=== PATIENT | male | born 1960 | race Caucasian/White ===

== ENCOUNTER 2022-06-18 23:45 | Inpatient (IN) | payer OTHER ==
[~2022-06-18] VITALS: Ht 185.4 cm; Wt 88.5 kg
[~2022-06-18 23:45] MED LIST: Glyburide-Metf1 EAC2 PO; LISI20 PO; METF500C PO
[2022-06-19 00:51] LABS: Source, Urine Clean Catch
[2022-06-19 00:57] LABS: Bilirubin, Urine Neg (Neg); Blood, Urine 2+ (Neg); Glucose Qualitative, Urine 1+ (Neg); Ketones, Urine Neg (Neg); Leukocyte Esterase, Urine 1+ (Neg); Nitrite, Urine Neg (Neg); Protein, Urine 3+ (Neg); Specific Gravity, Urine 1.015 (1.003-1.022); Urobilinogen, Urine NORM (Normal)
[2022-06-19 01:11] LABS: Appearance, Urine Clear (Clear); Color, Urine Yellow (P-Yellow)
[2022-06-19 01:12] LABS: Bacteria Not Seen /hpf; Red Blood Cells, Urine 0-2 /hpf (0-2); Squamous Epithelial Cells Rare /hpf (Few); White Blood Cells, Urine 0-2 /hpf (0-5)
[2022-06-19 01:18] LABS: BASOPHILS ABSOLUTE AUTO 0.06 K/mm3 (0.00-0.23); BASOPHILS PERCENT AUTO 1 % (0-2); EOSINOPHILS ABSOLUTE AUTO 0.11 K/mm3 (0.00-0.68); EOSINOPHILS PERCENT AUTO 2 % (0-6); Hematocrit 42.9 % (37.0-53.0); Hemoglobin 14.3 g/dL (13.5-17.5); IMMATURE GRAN ABSOLUTE AUTO 0.01 K/mm3 (0.00-0.10); IMMATURE GRAN PERCENT AUTO 0 % (0-1); LYMPHOCYTES PERCENT AUTO 16 % (21-46); MONOCYTES ABSOLUTE AUTO 0.62 K/mm3 (0.16-1.47); MONOCYTES PERCENT AUTO 10 % (4-13); Mean Corpuscular HGB 28.9 pg (26.0-34.0); Mean Corpuscular HGB Conc 33.3 g/dL (31.5-36.5); Mean Corpuscular Volume 87 fL (80-100); Mean Platelet Volume 9.9 fL (9.1-12.4); NEUTROPHILS ABSOLUTE AUTO 4.66 K/mm3 (1.96-9.15); NEUTROPHILS PERCENT AUTO 72 % (41-73); Platelet Count 181 K/mm3 (150-400); RDW Coefficient Variation 13.2 % (11.7-14.2); RDW Standard Deviation 41.6 fL (35.1-46.3); Red Blood Cell Count 4.95 M/mm3 (4.30-5.90); White Blood Cell Count 6.46 K/mm3 (4.00-11.30)
[2022-06-19 01:36] LABS: Albumin, Blood 4.1 g/dL (3.4-5.0); Bilirubin, Total 0.6 mg/dL (0.1-1.0); Bun/Creatinine Ratio 18.3 (12.0-20.0); Calcium, Blood 9.2 mg/dL (8.5-10.1); Creatinine, Blood 1.26 mg/dL (0.60-1.20); Potassium, Blood 4.3 mmol/L (3.5-5.5); Total Protein, Blood 8.1 g/dL (6.4-8.2)
[2022-06-19] MEDS ORDERED: AMLODIPINE BESYL5 MG PO (04:05)
[2022-06-19] MEDS ORDERED: LOSA50 (04:06)
[2022-06-19] MEDS ORDERED: PANTOPRAZOLE SO40 M2 PO (04:07)
[2022-06-19] MEDS ORDERED: ACTOS30 MG PO (04:08)
[2022-06-19] MEDS ORDERED: DECADRON4 M1 PO ×2 (16:02→16:34)
--- NOTE | 2022-06-19 20:01 | NUR ---
1545 PT TO MRI IN WHEELCHAIR. MEDICATED WITH ATIVAN 2MG IV X2 PRIOR TO IMAGE. STILL FAILED TO OBTAIN MRI PT UNABLE TO SIT STILL. BROUGHT BACK TO ROOM, SLEEPY, BUT DIRECTABLE, SBA WITH MILD UNSTEADY GAIT. CALLED DR HASKINS, WRITING DC ORDERS. PT TO HAVE MRI OUTPATIEND PLAN FOR CONSCIOUS SEDATION. PT BACAME INCREASINGLY AGITATED. CALLED SECURITY AT AROUND 1700. PT INSISTS ON STANDING THOUGH VERY UNSTEADY. INSISTS ON GETTING DRESSED AND GOING OUTSIDE FOR CIGARETTE. STATES HIS BEHAVIOR IS THE SAME WHEN SHE BROUGHT HIM IN TO THE ED AND SHE CAN'T HANDLE HIM AT HOME. CALLED DR HASKINS, AGREES TO HOLD OFF ON THE DISCHARGE. HOLDING OFF ON DIANNE BELT FOR PT SAFTEY PT AGREES TO AID PT IN HIS ROOM FOR THE TIME. GOT NICOTINE PATCH AND GUM FOR PT TO GET SOME LEXIE. FAMILY INSISTS ON SPEAKING WITH DR HASKINS FACE/FACE. SHE CAME BACK AROUND 1815. BECAME THREATENING IN POSTURE IN CLOSE PROXIMITY TO DR HASKINS INSISTING SHE SEND PT [place] [facility] [place] SCAN. STATED, "DO YOU RUN A DOG KENEL AROUND HERE?" DR HASKINS TOOK THE TIME TO DE-ESCELATE THE [employer]ANT[employer] FAMILY MEMBER AND TALK ABOUT SOLUTIONS AND A PLAN. AGREE TO SHAKA PT THROUGH THE NIGHT AND MAKE DECISIONS TOMORROW.
[2022-06-19 23:05] LABS: Influenza A, PCR NEGATIVE (NEGATIVE); Influenza B, PCR NEGATIVE (NEGATIVE); Resp Syncytial Virus, PCR NEGATIVE (NEGATIVE); SARS-Cov-2 (COVID-19) PCR, MMC NEGATIVE (NEGATIVE)
== END 2022-06-19 22:52 | disposition short-term general hospital (02) | DRG 70 ==
LOC: ER 23:45 → MEDS 23:46
PROVIDERS: Hospitalist; Student in an Organized Health Care Education/Training Program; ADMIT Internal Medicine
DX: G93.9 Disorder of brain, unspecified (principal); G93.6 Cerebral edema; G93.40 Encephalopathy, unspecified; F40.240 Claustrophobia; Z20.822 Contact with and (suspected) exposure to COVID-19; K22.70 Barrett's esophagus without dysplasia; F17.210 Nicotine dependence, cigarettes, uncomplicated; E11.22 Type 2 diabetes mellitus with diabetic chronic kidney disease; I12.9 Hypertensive chronic kidney disease with stage 1 through stage 4 chronic kidney disease, or unspecified chronic kidney disease; N18.1 Chronic kidney disease, stage 1; Z79.899 Other long term (current) drug therapy; Z98.890 Other specified postprocedural states; Z89.022 Acquired absence of left finger(s); Z79.84 Long term (current) use of oral hypoglycemic drugs
CPT/HCPCS: 0241U; 36415; 70450; 80053; 81001; 82947; 85025; 96361; 96374; 99285-25; A9270; G0378; J1100; J2060; J7030

== ENCOUNTER 2022-09-26 14:35 | Inpatient (IN) | payer OTHER ==
[~2022-09-26] VITALS: Ht 185.4 cm; Wt 76.1 kg
[~2022-09-26 14:35] MED LIST changes: +ACTOS30 MG PO; +AMLODIPINE BESYL5 MG PO; +DECADRON4 M1 PO; +LOSA50 PO; +PANTOPRAZOLE SO40 M2 PO
[2022-09-26 15:12] LABS: BASOPHILS ABSOLUTE AUTO 0.05 K/mm3 (0.00-0.23); BASOPHILS PERCENT AUTO 1 % (0-2); EOSINOPHILS PERCENT AUTO 2 % (0-6); Hematocrit 33.3 % (37.0-53.0); Hemoglobin 10.5 g/dL (13.5-17.5); IMMATURE GRAN ABSOLUTE AUTO 0.03 K/mm3 (0.00-0.10); IMMATURE GRAN PERCENT AUTO 1 % (0-1); LYMPHOCYTES ABSOLUTE AUTO 0.71 K/mm3 (0.84-5.20); LYMPHOCYTES PERCENT AUTO 11 % (21-46); MONOCYTES ABSOLUTE AUTO 0.36 K/mm3 (0.16-1.47); MONOCYTES PERCENT AUTO 6 % (4-13); Mean Corpuscular HGB 25.9 pg (26.0-34.0); Mean Corpuscular HGB Conc 31.5 g/dL (31.5-36.5); Mean Corpuscular Volume 82 fL (80-100); Mean Platelet Volume 10.2 fL (9.1-12.4); NEUTROPHILS ABSOLUTE AUTO 5.34 K/mm3 (1.96-9.15); NEUTROPHILS PERCENT AUTO 81 % (41-73); Platelet Count 207 K/mm3 (150-400); RDW Coefficient Variation 13.8 % (11.7-14.2); Red Blood Cell Count 4.06 M/mm3 (4.30-5.90); White Blood Cell Count 6.59 K/mm3 (4.00-11.30)
[2022-09-26 15:33] LABS: Albumin, Blood 3.2 g/dL (3.4-5.0); Albumin/Globulin Ratio 0.8 (0.8-1.8); Bilirubin, Total 0.3 mg/dL (0.1-1.0); Bun/Creatinine Ratio 14.8 (12.0-20.0); Calcium, Blood 8.9 mg/dL (8.5-10.1); Creatinine, Blood 1.08 mg/dL (0.60-1.20); Globulin, Blood 3.8 g/dL (2.2-4.0); Potassium, Blood 3.7 mmol/L (3.5-5.5)
[2022-09-26 16:46] LABS: Source, Urine Clean Catch
[2022-09-26] MEDS ORDERED: LEVE500 PO (17:00)
[2022-09-26 17:31] LABS: Appearance, Urine Clear (Clear); Bilirubin, Urine Neg (Neg); Blood, Urine 2+ (Neg); Color, Urine Yellow (P-Yellow); Glucose Qualitative, Urine Neg (Neg); Ketones, Urine 1+ (Neg); Leukocyte Esterase, Urine Neg (Neg); Nitrite, Urine Neg (Neg); Protein, Urine 2+ (Neg); Specific Gravity, Urine 1.015 (1.003-1.022); Urobilinogen, Urine NORM (Normal)
[2022-09-26 18:11] LABS: Bacteria Few /hpf; Granular Casts 0-2 /lpf (0); Hyaline Casts 0-2 /lpf (0-2); Squamous Epithelial Cells Rare /hpf (Few)
[2022-09-26] MEDS ORDERED: ATOR40TA PO (21:16)
--- NOTE | 2022-09-27 06:41 | NUR ---
A/OX2; SELF AND PLACE, IRRITABLE, GENERALLY COOPERATIVE WITH CARE. PATIENT ATTEMPTED TO PULL JONES CATH AND IMPULSIVE ATTEMPTS TO EXIT BED ALONE. GOOD BED MOBILITY, NOT TESTED OOB YET (FAILED ROAD TEST IN ED). UNABLE TO COMPLETE MRI FORM WITH PATIENT. WILL DEFER TO DAY SHIFT TO CONTACT . SLEEP PROMOTED. CALL LIGHT IN REACH; ENCOURAGED TO MAKE NEEDS KNOWN. BED ALARM SET. FREQUENT ROUNDING/ NEEDS ANTICIPATED
[2022-09-27 07:29] LABS: BASOPHILS ABSOLUTE AUTO 0.06 K/mm3 (0.00-0.23); BASOPHILS PERCENT AUTO 1 % (0-2); EOSINOPHILS ABSOLUTE AUTO 0.11 K/mm3 (0.00-0.68); EOSINOPHILS PERCENT AUTO 2 % (0-6); Hematocrit 32.5 % (37.0-53.0); Hemoglobin 10.6 g/dL (13.5-17.5); IMMATURE GRAN ABSOLUTE AUTO 0.01 K/mm3 (0.00-0.10); IMMATURE GRAN PERCENT AUTO 0 % (0-1); LYMPHOCYTES ABSOLUTE AUTO 0.84 K/mm3 (0.84-5.20); LYMPHOCYTES PERCENT AUTO 14 % (21-46); MONOCYTES ABSOLUTE AUTO 0.61 K/mm3 (0.16-1.47); MONOCYTES PERCENT AUTO 10 % (4-13); Mean Corpuscular HGB 26.3 pg (26.0-34.0); Mean Corpuscular HGB Conc 32.6 g/dL (31.5-36.5); Mean Corpuscular Volume 81 fL (80-100); Mean Platelet Volume 10.3 fL (9.1-12.4); NEUTROPHILS ABSOLUTE AUTO 4.32 K/mm3 (1.96-9.15); NEUTROPHILS PERCENT AUTO 73 % (41-73); Platelet Count 210 K/mm3 (150-400); RDW Coefficient Variation 13.9 % (11.7-14.2); RDW Standard Deviation 40.5 fL (35.1-46.3); Red Blood Cell Count 4.03 M/mm3 (4.30-5.90); White Blood Cell Count 5.95 K/mm3 (4.00-11.30)
[2022-09-27 07:57] LABS: Anion Gap 7 mmol/L (6-16); Blood Urea Nitrogen 12 mg/dL (8-24); Bun/Creatinine Ratio 11.1 (12.0-20.0); CO2, Blood 28 mmol/L (21-32); Calcium, Blood 9.1 mg/dL (8.5-10.1); Chloride, Blood 106 mmol/L (98-108); Cholesterol 188 mg/dL (50-200); Creatinine, Blood 1.08 mg/dL (0.60-1.20); Glomerular Filtration Rate 78 (60-); Glucose, Blood 127 mg/dL (70-99); Potassium, Blood 3.6 mmol/L (3.5-5.5); Sodium, Blood 141 mmol/L (136-145); Triglycerides 106 mg/dL (30-160)
--- NOTE | 2022-09-27 16:52 | NUR ---
SHIFT SUMMARY PT HAD ECHO AND MRI COMPLETED TODAY. PT WORKED WITH ST/PT/OT. CLEARED BY ST. 2P MAX ASSIST NEEDED FOR TRANSFER AFTER WORKING WITH THERAPY. LEGS ARE VERY WEAK, ESPECIALLY THE L SIDE. IV FLUIDS DCED TODAY. PT TOLERATING PO INTAKE. POOR APPETITE HOWEVER. FLOEY CATH PATENT & DRAINING DUE TO ACUTE RETENTION. NO OTHER ACUTE CHANGES IN ASSESSMENT AT THIS TIME. VS REVIEWED. CALL LIGHT IN REACH.
--- NOTE | 2022-09-28 07:29 | NUR ---
A/OX3-4; ONLY DISORIENTED TO CURRENT YEAR, IRRITABLE AT TIMES, FORGETFUL, GENERALLY COOPERATIVE WITH CARE. IMPUSIVE ATTEMPTS TO EXIT BED AT TIMES. JONES PATENT; PLACED FOR RETENTION IN ED. 2X ASSIST PIVOT WITH GAITBELT AND WALKER. SLEEP PROMOTED. CALL LIGHT IN REACH; ENCOURAGED TO MAKE NEEDS KNOWN. BED ALARM SET. FREQUENT ROUNDING/ NEEDS ANTICIPATED
--- NOTE | 2022-09-28 16:34 | NUR ---
SHIFT NOTE PT AWAKE AND ALERT. UP IN CHAIR AT BEDSIDE MOST OF THE DAY. WORKED WITH PT/OT TODAY. HE EXPRESSED FEELING HOPEFUL FOR SNF/REHAB. VSS. STARTED ORETIC THIS AFTERNOON. HE WANTS HIS JONES OUT TONIGHT WHEN HE GOES TO BED. DENIED PAIN OR DISCOMFORT. CONTINUE POC.
--- NOTE | 2022-09-29 04:32 | NUR ---
ICT SALES REPRESENTATIVE SUMMARY PT IS AXO X3-4 BUT HAS SCATTERED THOUGHTS AND IS INTERMITTANTLY CONFUSED. PTABLE TO TRASNFER SELF FROM CHAIR TO BED WITH MINIMAL ASSITANCE FROM THIS RN. BP STILL ELEVATED BUT TRENDING DOWN. O2 SATS >92% ON RM AIR. JONES CATHETER IN PLACE DRAINING TO GRAVITY. CATHETER CLAMPED ON AND OFF THROUGHOUT THE SHIFT FOR BLADDER TRAINING FOR ANTIVCIPATION OF REMOVAL, PT EXPRESSING DESIRE TO HAVE CATHETER REMOVED. PT ABLE TO SLEEP FOR MAJORITY OF THE NIGHT. WILL REPORT TO ONCOMING RN.
--- NOTE | 2022-09-29 16:47 | NUR ---
EVENING NOTE PT UP IN CHAIR ALL DAY. TRANSFERS WITH GAIT BELT AND FWW. NO ATTEMPOTS TO GET UP WITH OUTHELP. GOOD APPETITE. VISITED THIS MORNING. PT HAS HAD NO COMPLAINTS FOR STAFF. NAPPING FREQUENTLY. CONTINUE POC.
--- NOTE | 2022-09-30 04:21 | NUR ---
SHIFT SUMMARY PATIENT HAD NO ACUTE CHANGES OBSERVED. AXOX 4 AND ONE ASSIST W/FWW AND GB TO BSC. JONES PATENT AND DRAINING TO GRAVITY FOR RETENTION. PIV REMAINS INTACT. CBG 266. DENIES PAIN, SOB, AND N/V. VSS/AFEBRILE. CALL LIGHT IN REACH. BED IN LOWEST POSITION. WILL CONTINUE TO MONITOR UNTIL DAY SHIFT NURSE ASSUMES CARE.
--- NOTE | 2022-09-30 19:40 | NUR ---
SHIFT SUMMARY PTN UP TO CHAIR MOST OF DAY, WATCHING TV OR READING A BOOK. IN FOR A BIT, WELL OTHER FAMILY. PTN ANXIOUS TO GET BED AT SNF FOR REHAB. HX PRIOR STROKE WITH L-SIDED WEAKNESS, YET INDEPENDENT IN ROOM WITH NO VISIBLE DEFICIT. HERE FOR SEIZURE, STARTED ON MEDICATION, NO SEIZURE ACTIVITY REPORTED SINCE ADMISSION. INSULIN SHORT-ACTING AND METFORMIN ADDED TO MEDICATION REGIMEN. PTN WITH INTERMITTENT CONFUSION. HE DID NOT REMEMBER ANY SKIN ISSUES REPORTED BY THERAPY ASSISTANT AND SAID HE DID NOT WANT INSULIN AND THEN DID NOT REMEMBER SAYING THAT. REPORTED BLOOD SUGARS BETTER CONTROLLED AT HOME. CONTINUE TO MONITOR.
--- NOTE | 2022-10-01 05:01 | NUR ---
SHIFT MOSTLY UNREMARKABLE. PT INDEPENDENT WITHIN THE ROOM. PT STAYED AWAKE THROUGHOUT ENTIRETY OF SHIFT. PT HAS HABIT OF WALKING WITHIN THE ROOM WITHOUT PAYING ATTENTION TO JONES CATHETER AND STRETCHING THE LINE FARTHER THAN INTENDED. AROUND 0500 PATIENT COMPLAINED OF BURNING SENSATION ASSOCIATED WITH JONES. NO APPARENT SIGNS OF DAMAGE. MAY BE ABLE TO DC ON DAY SHIFT. CALL LIGHT LEFT WITHIN REACH.
--- NOTE | 2022-10-01 17:24 | NUR ---
SHIFT SUMMARY: NO NEW CHANGES THIS SHIFT. PATIENT A&OX3, FORGETFUL AND MILD CONFUSION AT TIMES. EASILY REDIRECTABLE, PLEASANT AND COOPERATIVE WITH CARE. PATIENT PARTICIPATE WITH PT MOBILITY THIS AM. AMBULATES IN ROOM WITH SBA, FWW AND GAITBELT. PATIENT BS THIS SHIFT RANGES FROM 170'S-250'S. RECEIVED INSULIN PER LOW SLIDING SCALE COVERAGE ALONG WITH SCHEDULED METFORMIN BID. PATIENT RECEIVED BLADDER TRAINING T/O THE DAY, PRIOR TO DC'D THE JONES. JONES WAS DC'D AT 1635. IV TO L WRIST SALINE LOCKED. VITAL SIGNS REVIEWED. CALL LIGHT IN REACH.
--- NOTE | 2022-10-02 05:11 | NUR ---
SHIFT MOSTLY UNREMARKABLE. PATIENT IS INDEPENDENT IN ROOM AND CALLS APPROPRIATELY. HS CBG CHECK WAS ABOUT 300 MG/DL. PATIENT ASYMPTOMATIC WITH NO COMPLAINTS. WITHHELD NIGHTTIME SNACKS/FOODS WITH PLANS TO RECHECK IN MORNING. PATIENT PRODUCING URINE AND VOIDING WITHOUT DIFFICULTY AFTER DC OF JONES YESTERDAY ON DAY SHIFT. CALL LIGHT LEFT WITHIN REACH.
--- NOTE | 2022-10-02 18:18 | NUR ---
SHIFT SUMMARY- PT ALERT AND ORIENTED X 3-4 HE CAN BE A LITTLE FORGETFUL. PT HAS BEEN INDEPENDENT TO THE BATHROOM AND REPORTS NO DIFFICULTY VOIDING SINCE CATHETER REMOVAL. 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 PT STATED THE STROKE HAS MADE HIM FORGET HOW HE ADAPTED TO LIFE WITH NO FINGERS ON THE LEFT HAND. HE CAN GET A LITTLE FRUSTRATED TRYING TO PERFORM SOME TASKS, BUT ANSWERS QUESTIONS APPROPRIATELY. WILL CTM AND PASS ON TO NIGHT RN IN BEDSIDE REPORT.
[2022-10-02 23:55] LABS: Source, Urine Clean Catch
[2022-10-02 23:58] LABS: Bilirubin, Urine Neg (Neg); Blood, Urine 3+ (Neg); Glucose Qualitative, Urine Neg (Neg); Ketones, Urine Neg (Neg); Leukocyte Esterase, Urine 3+ (Neg); Nitrite, Urine Pos (Neg); Protein, Urine 3+ (Neg); Specific Gravity, Urine 1.015 (1.003-1.022); Urobilinogen, Urine NORM (Normal)
[2022-10-03 00:50] LABS: Appearance, Urine Cloudy (Clear); Color, Urine Yellow (P-Yellow)
[2022-10-03 01:47] LABS: White Blood Cells, Urine 50-100 /hpf (0-5)
[2022-10-03 01:48] LABS: Bacteria Many /hpf; Squamous Epithelial Cells Rare /hpf (Few)
[2022-10-03 01:50] LABS: Granular Casts 0-2 /lpf (0)
--- NOTE | 2022-10-03 05:40 | NUR ---
Rn summary: Patient was restless and up frequently to the BR at the beginning of shift. Pt seemed to be having difficulty manuvering the walker around the toliet so he could sit on it. He would put it against the side of the toliet and then he would be blocked in. Pt was unsteady enough we put the bed alarm on and he was a 1 assist to the bathroom. He finally agreed to use the urinal with assist after being up 7 times. He has rested well since. Order was obtained for a UA, culture is pending. Pt had c/o some burning when he urinated. Pt had voiced some frustration that he had difficulty doing things that used to be routine, like pulling his pants up and down. Pt was irritable at the beginning of shift. resting at this time with eyes closed. Call light in reach, bed alarm on.
--- NOTE | 2022-10-03 18:21 | NUR ---
EVENING NOTE PT RESTING. USING CALL LIGHT APPROPRAITELY. VOIDING PER URINAL. HE SEEMS LESS STEADY WHEN UP. HE IS RUNNING HTE LEFT SIDE OF THE WALKER INTO THE DOOR FRAME. HE DSEEMS TO BE HAVING MORE DIFFICULTY PROBLEM SOLVING. LAST WEEK HE STOOD STRAIGHT UP. TODAY HE'S MORE STOOPED. POOR APPETITE TODAY. VOIDING GEOVANI URINE. NO COMPLAINTS OF PEEING PAIN. HE EXPRESSED FRUSTRATION WITH BEINGHERE STILL. CONTINUE POC.
--- NOTE | 2022-10-04 04:16 | NUR ---
SHIFT SUMMARY PATIENT IS ALERT AND ORIENTED. PATIENT HAS BEEN PLEASENT AND COOPERATIVE WITH CARE. PATIENT HAS HAD NO ACUTE EVENTS THIS SHIFT. PATIENT HAS NEEDED HELP WITH URINAL AND GETTING TO BATHROOM USING FWW. PATIENT HAS BEEN PRODUCING FREQUENT SMALL AMOUNTS OF URINE. PATIENT HAS NOT COMPLAINED OF PAIN, NAUSEA, SOB OR VOMITTING. BED IN LOWEST AND LOCKED POSITION. CALL LIGHT IN PLACE. PATIENT CURRENTLY RESTING IN BED COMFORTABLY.
--- NOTE | 2022-10-04 18:30 | NUR ---
EVENING NOTE PT AWAKE AND ALERT. PT/ MET WITH A [employer] MOLD PRINTER TO SIGN UP FOR MEDICAIDE TODAY. FAMILY AT BEDSIDE THIS EVENING. DAUGHTER IN LAW CALLED [facility] TO TRY AND GREASE THE WHEELS AND GET PT A BED. RECOMMENDED THAT SHE COME IN WITH [facility] AND MEET WITH OYSTER PREPARER TOMORROW. NO CHANGE IN MOBILITY, LEFT FIELD NEGLECT . HE IS USING A 4 WHEELED WALKER TODAY THAT SEEMS TO WORK BETTER FOR HIM. UP TO THE BATHROOM WITH SBA AND VISUAL CUEING. VSS. CONTINUE POC.
--- NOTE | 2022-10-05 06:48 | NUR ---
Shift Summary Pt AOx4, vss, stable and cooperative with care. Slept well t/o most of the night. Calls appropriatly when needing to use urinal or bathroom.
--- NOTE | 2022-10-06 05:35 | NUR ---
SHIFT SUMMARY PATIENT ALERT AND ORIENTED X3. HAD NO COMPLAINTS OF PAIN OR SHORTNESS OF BREATH. NO ACUTE ISSUES NOTED OVERNIGHT. CALL LIGHT WITHIN REACH. REPORT GIVEN TO ONCOMING RN.
--- NOTE | 2022-10-06 12:23 | NUR ---
NO ACUTE CHANGES SINCE ASSUMPTION OF CARE AT 0700. PATIENT UP IN ROOM SBA, WORKED WITH PT & OT AND DID VERY WELL. PATIENT HOPEFUL TO BE DC'D HOME RATHER THAN SNF. EEATING, DRINKING, & VOIDING W/O DIFFICULTY. VSS ON RA. CALLS APPROPRIATELY.
--- NOTE | 2022-10-06 18:27 | NUR ---
Assumed care of patient at 1300, handoff report given by RN. Patient independent in room, no concerns at this time. Plan is to discharge home tomorrow w/ homehealth.
--- NOTE | 2022-10-07 05:46 | NUR ---
SHIFT SUMMARY PATIENT ALERT AND ORIENTED. HAD NO COMPLAINTS OF PAIN OR SHORTNESS OF BREATH. PATIENT HAD MINIMAL NEEDS AND SLEPT WELL OVERNIGHT. NO ACUTE ISSUES NOTED. CALL LIGHT WITHIN REACH. REPORT GIVEN TO ONCOMING RN.
[2022-10-07] MEDS ORDERED: KEPPRA100 MG/1 M PO (11:16)
[2022-10-07] MEDS ORDERED: ASPI81CH PO (11:19)
[2022-10-07] MEDS ORDERED: NORVASC5 MG PO (11:19)
[2022-10-07] MEDS ORDERED: DOCU100 PO (11:20)
[2022-10-07] MEDS ORDERED: CARV6.25 PO (11:20)
[2022-10-07] MEDS ORDERED: CLOP75 PO (11:20)
[2022-10-07] MEDS ORDERED: HYDCHL25 PO (11:21)
[2022-10-07] MEDS ORDERED: TAMS.4ER PO (11:21)
--- NOTE | 2022-10-07 12:33 | NUR ---
PT IS A&O, PLEASANT AND CO-OP WITH CARE. SITTING UP IN CHAIR AT BS AT START OF SHIFT. NO C/O. PT HOPING TO GO HOME TODAY; DR BUTTS LATER IN TO SEE PT AND DISCUSS PLAN OF CARE. PT OK TO D/C TO HOME WITH H/H. D/C ORDERS PLACED. MEDICATIONS FAXED TO [facility], PER PT REQUEST. D/C INSTRUCTIONS REVIEWED WITH PT. NOTIFIED OF PT'S D/C, PER PT REQUEST. DENIED FURTHER NEEDS AT THIS TIME. PT AMBULATING IN HALLS SEVERAL TIMES TODAY WITH SBA FROM [facility]OPE WALKER. INDEPENDENT IN AND TO [facility].
--- NOTE | 2022-10-07 13:26 | NUR ---
PT'S HERE TO SPECIAL EVENTS DRIVER PT. PT REQUESTED AND ABLE TO WALK HIMSELF OUT TO CAR USING FWW PROVIDED. GATHERED AND LEFT WITH PT BELONGS AT PT'S SIDE.
== END 2022-10-07 13:08 | disposition home health service (06) | DRG 65 ==
LOC: ER 14:35 → MEDS 14:36
PROVIDERS: Emergency Medicine; Nurse Practitioner Acute Care; ADMIT Student in an Organized Health Care Education/Training Program
DX: I63.9 Cerebral infarction, unspecified (principal); N39.0 Urinary tract infection, site not specified; R56.9 Unspecified convulsions; Z23 Encounter for immunization; R29.703 NIHSS score 3; F40.240 Claustrophobia; I10 Essential (primary) hypertension; E11.9 Type 2 diabetes mellitus without complications; K22.70 Barrett's esophagus without dysplasia; F17.210 Nicotine dependence, cigarettes, uncomplicated; D64.9 Anemia, unspecified; R33.8 Other retention of urine; B96.20 Unspecified Escherichia coli [E. coli] as the cause of diseases classified elsewhere; Z98.890 Other specified postprocedural states; Z86.73 Personal history of transient ischemic attack (TIA), and cerebral infarction without residual deficits; Z79.84 Long term (current) use of oral hypoglycemic drugs; Z79.899 Other long term (current) drug therapy
CPT/HCPCS: 36415; 51702; 70450; 70551; 80048; 80053; 81001; 82465; 82947; 83735; 84478; 85025; 87077; 87086; 87186; 90686; 92610; 93005; 93010; 93306; 93880; 96361; 96365; 96366; 96367; 96372; 96375; 97110; 97112; 97116; 97129; 97162; 97166; 97530; 97535; 99285-25; A9270; G0008; G0378; G0480; J1650; J1953; J2060; J3475; J7030; J7120

== ENCOUNTER 2022-12-11 17:05 | Inpatient (IN) | payer OTHER ==
[~2022-12-11] VITALS: Ht 185.4 cm; Wt 78.4 kg
[~2022-12-11 17:05] MED LIST changes: +ASPI81CH PO; +ATOR40TA PO; +CARV6.25 PO; +CLOP75 PO; +DOCU100 PO; +HYDCHL25 PO; +KEPPRA100 MG/1 M PO; +LEVE500 PO; +NORVASC5 MG PO; +TAMS.4ER PO
[2022-12-11 17:21] LABS: BASOPHILS ABSOLUTE AUTO 0.04 K/mm3 (0.00-0.23); BASOPHILS PERCENT AUTO 1 % (0-2); EOSINOPHILS ABSOLUTE AUTO 0.17 K/mm3 (0.00-0.68); EOSINOPHILS PERCENT AUTO 3 % (0-6); Hematocrit 36.4 % (37.0-53.0); Hemoglobin 11.8 g/dL (13.5-17.5); IMMATURE GRAN ABSOLUTE AUTO 0.01 K/mm3 (0.00-0.10); IMMATURE GRAN PERCENT AUTO 0 % (0-1); LYMPHOCYTES ABSOLUTE AUTO 1.76 K/mm3 (0.84-5.20); LYMPHOCYTES PERCENT AUTO 28 % (21-46); MONOCYTES ABSOLUTE AUTO 0.53 K/mm3 (0.16-1.47); MONOCYTES PERCENT AUTO 8 % (4-13); Mean Corpuscular HGB 25.7 pg (26.0-34.0); Mean Corpuscular HGB Conc 32.4 g/dL (31.5-36.5); Mean Corpuscular Volume 79 fL (80-100); Mean Platelet Volume 9.5 fL (9.1-12.4); NEUTROPHILS ABSOLUTE AUTO 3.87 K/mm3 (1.96-9.15); NEUTROPHILS PERCENT AUTO 61 % (41-73); Platelet Count 222 K/mm3 (150-400); RDW Coefficient Variation 15.4 % (11.7-14.2); RDW Standard Deviation 43.8 fL (35.1-46.3); White Blood Cell Count 6.38 K/mm3 (4.00-11.30)
[2022-12-11 17:47] LABS: Bilirubin, Total 0.3 mg/dL (0.1-1.0); Bun/Creatinine Ratio 22.1 (12.0-20.0); Calcium, Blood 9.1 mg/dL (8.5-10.1); Creatinine, Blood 1.13 mg/dL (0.60-1.20); Globulin, Blood 4.1 g/dL (2.2-4.0); Potassium, Blood 4.1 mmol/L (3.5-5.5); Total Protein, Blood 8.1 g/dL (6.4-8.2)
--- NOTE | 2022-12-12 00:45 | NUR ---
ADMIT NOTE; PT ARRIVES TO THE FLOOR VIA ED GURNERY. THE PT IS TRANSFERED VIA SLIDER SHEET TO THE HOSPITAL BED. THE PT IS ALERT UPON ADMIT. THE PT HAS TREMORS UPON ADMIT AND IS SPASTIC. THE PT IS UNPLEASANT WITH STAFF AND CURSES WHEN WE ATTEMPT TO PERFORM ANY PT CARE. THE PT APPEARS TO BE NO ACUTE DISTRESS.
--- NOTE | 2022-12-12 01:00 | NUR ---
CALLED DR CLEMENTE IN REGARDS TO PTS BLOOD PRESSURE BEING ELEVATED AT 186/98 AND THE PTS BLOOD SUGAR BEING 71 WHILE BEING NPO STATUS. D-50 ORDER GIVEN AND TO PUT IN BLOOD PRESSURE MEDICATION ORDERS.
[2022-12-12 05:10] LABS: BASOPHILS ABSOLUTE AUTO 0.04 K/mm3 (0.00-0.23); BASOPHILS PERCENT AUTO 1 % (0-2); EOSINOPHILS ABSOLUTE AUTO 0.11 K/mm3 (0.00-0.68); EOSINOPHILS PERCENT AUTO 3 % (0-6); Hematocrit 32.4 % (37.0-53.0); Hemoglobin 10.8 g/dL (13.5-17.5); IMMATURE GRAN ABSOLUTE AUTO 0.02 K/mm3 (0.00-0.10); IMMATURE GRAN PERCENT AUTO 1 % (0-1); LYMPHOCYTES ABSOLUTE AUTO 0.81 K/mm3 (0.84-5.20); LYMPHOCYTES PERCENT AUTO 19 % (21-46); MONOCYTES ABSOLUTE AUTO 0.42 K/mm3 (0.16-1.47); MONOCYTES PERCENT AUTO 10 % (4-13); Mean Corpuscular HGB 25.7 pg (26.0-34.0); Mean Corpuscular HGB Conc 33.3 g/dL (31.5-36.5); Mean Corpuscular Volume 77 fL (80-100); Mean Platelet Volume 9.6 fL (9.1-12.4); NEUTROPHILS ABSOLUTE AUTO 2.87 K/mm3 (1.96-9.15); NEUTROPHILS PERCENT AUTO 67 % (41-73); Platelet Count 176 K/mm3 (150-400); RDW Standard Deviation 41.8 fL (35.1-46.3); White Blood Cell Count 4.27 K/mm3 (4.00-11.30)
[2022-12-12 05:39] LABS: Magnesium, Blood 1.8 mg/dL (1.6-2.4)
[2022-12-12 05:41] LABS: Albumin, Blood 3.7 g/dL (3.4-5.0); Albumin/Globulin Ratio 1.1 (0.8-1.8); Bilirubin, Total 0.3 mg/dL (0.1-1.0); Calcium, Blood 9.1 mg/dL (8.5-10.1); Creatinine, Blood 1.11 mg/dL (0.60-1.20); Globulin, Blood 3.3 g/dL (2.2-4.0); Potassium, Blood 3.1 mmol/L (3.5-5.5)
--- NOTE | 2022-12-12 05:51 | NUR ---
SHIFT SUMMARY; PT IS WITH TREMORS AND SPASTIC T/O THE NIGHT. THE PT IS AXO X3-4 WITH SOME CONFUSION. SEIZURE PRECAUTIONS ARE IN PLACE. NS IS RUNNING AT 100MLS/HR. THE PT DENIES ANY SOB, CHEST PAIN/PRESSURE. THE PTS IS UNPLEASANT WITH STAFF DURING PERSONAL CARE FREQUENTLY, OFTEN CURSES AT STAFF. THE PT IS CURRENTLY RESTING IN BED WITH THE BED IN THE LOWEST POSITION, SEIZURE PADS IN PLACE, THE BED IN THE LOWEST POSITION AND THE CALL LIGHT WITHIN REACH.
--- NOTE | 2022-12-12 06:42 | NUR ---
CALLED ABOUT PTS B/P ORIGINALLY BEING 178/85, SAID I COULD GIVE 0800 COREG AND 0900 LOSARTAN EARLY. RECHECKED VITALS DUE TO PTS HEART RATE ONLY BEING 64, NEW VITALS 156/80 AND HEART RATE 63. DECIDED NOT TO GIVE COREG OR LOSARTAN NOW.
--- NOTE | 2022-12-12 10:46 | NUR ---
NOTES: PATIENT THE ROOM AT THIS TIME, TRANSPORTED VIA GURNEY TO IMAGING.
[2022-12-12 11:11] LABS: Source, Urine Clean Catch
[2022-12-12 11:14] LABS: Appearance, Urine Hazy (Clear); Bilirubin, Urine Neg (Neg); Blood, Urine 2+ (Neg); Color, Urine Yellow (P-Yellow); Glucose Qualitative, Urine Neg (Neg); Ketones, Urine Neg (Neg); Leukocyte Esterase, Urine 3+ (Neg); Nitrite, Urine Neg (Neg); Protein, Urine 2+ (Neg); Urobilinogen, Urine NORM (Normal); pH, Urine 6.5 (5.0-8.0)
[2022-12-12 13:18] LABS: Bacteria Few /hpf; Squamous Epithelial Cells Rare /hpf (Few)
--- NOTE | 2022-12-12 14:46 | NUR ---
NOTES: PATIENT LEFT THE ROOM AT THIS TIME, TRANSPORTED VIA GURNEY TO IMAGING.
--- NOTE | 2022-12-12 18:39 | NUR ---
SHIFT SUMMARY: PATIENT A&OX3. IRRITABLE, AND EASILY GET FRUSTRATED c REPOSITIONING AND ATTENDS CHANGED T/O SHIFT. DENIES CP/PRESSURE, SOB, NV. PATIENT HAS BEEN SLEEPING OFF AND ON T/O SHIFT. PATIENT HAS EPISODE OF JERKY MOVEMENT TO UPPER EXTREMITIES T/O SHIFT. ECHO WAS DONE TODAY, AWAITING FOR RESULT. PATIENT HAD 2 ATTEMPT TO HAD MRI TO HEAD BUT WAS NOT SUCCESSFUL EVEN c OT DOSE OF IV VALIUM ADMINISTER 30 MINS BEFORE THE PROCEDURE. PATIENT WAS NOT TOLERATING LAYING FLAT. REPORTS PAIN TO L SHOULDER. PER DRY CLEANER PRESSER, WILL TRY AGAIN TOMORROW. DR BUTTS WAS NOTIFIED WITH THIS ISSUE. VITAL SIGNS REVIEWED. IV TO L FOREARM INFUSING NS AT 100 MLS/HR. COREG DOSE AT 1700 WAS NOT GIVEN D/T PATIENT HR OF 66 BPM. PER ORDER TO HOLD COREG IF HR LESS 70 BPM. PATIENT IS CONT/INCONTIN T/O SHIFT, USED URINAL c ASSISTANCE AND ATTENDS INPLACE. BED ALARM ON FOR SAFETY. CALL LIGHT IN REACH.
--- NOTE | 2022-12-12 20:17 | NUR ---
PT HAD SEIZURE LIKE ACTIVITY DURING ASSESSMENT: HE WAS A/OX4 W/MILD FORGETFULLNES TO DAY OF MONTH BUT IS ORIENTED OTHERWISE. HE'S SLIGHTLY SLOW TO RESPOND BUT IS ABLE TO SPECIFY NEEDS APPROPRIATELY. L.UPPPER AND LOWER EXT'S WEAK AND LACK COORDINATION RESIDUAL CVA DEFICITS FROM 09/2022. BUT WHEN STAFF WERE REPOSITIONING PT, IT SEEMED TO TRIGGER SEIZURE LIKE ACTIVITY. HE REMAINED CONSCIOUS T/O APPROX 1 MINUTE EPISODE BUT HE BEGAN JERKING AND TREMBLING UNCONTROLLABLY. THIS WAS NOTED TO BE MORE PRONOUNCED TO HIS L.SIDE. WITH SIGNIFICANT TREMOR SEEN TO HAND AND CHEST. HIS HEAD ALSO TURNED TOWARD THE LEFT W/HIS EYES BECOMING FIXED IN A FORWARD GAIZE. HE WAS ABLE TO SPEAK T/O EVENT BUT SPEECH WAS SHAKEY AND DELAYED. HE WAS ENTIRELY COGNIZANT OF EVENT AND IT RESOLVED SPONTANEOUSLY. HE DENIED PAIN, NAUSEA AND ALL OTHER S/S DISTRESS. VSS WERE STABLE FOLLOWING AND HE RETURNED TO BASELINE MENTATION W/O COMPLAINTS. HE ADMITTED THAT THIS HAS BEEN OCCURING FOR APPROX "48 HOURS NOW" BUT HE HAD NO OTHER SEIZURE LIKE ACTIVITY OTHER THAN "ONCE NEARLY A MONTH OR 2 AGO". PLAN TO MONITOR CLOSELY FOR CHANGES OR INCREASE IN DURATION/FREQUENCY OF EVENTS. WILL NOTIFY MD RODRIGUEZ AND PROVIDE PO KEPPRA RX'D SINCE PT'S SWALLOW REMAINS INTACT.
--- NOTE | 2022-12-13 04:35 | NUR ---
SUMMARY: PT A/0X4 BUT IS MILDLY FORGETFULL TO DAY OF MONTH. HE HAS L.SIDE WEAKNESS W/SPASTICITY AND LACKS COORDINATION OF L.UPPER AND LOWER EXT'S FROM HX CVA. PT CONTINUES TO HAVE EPISODES OF SEIZURE LIKE ACTIVITY WHERE HE'S OBSERVED JERKING AND TREMULOUS, MORE PROMINENT TO HIS L.SIDE. DURING THESE EVENTS HE HAS A FIXATED GAIZE TO HIS LEFT WHILE MAINTAINING CONCIOUSNESS AND SPEAKING IN DELAYED SPEACH. EPISODES APPEAR TO HAVE BEEN MOSTLY MOVEMENT INDUCED, OCCURING DURING REPOSITIONING, TURNING, BOOSTING AND ATTENDS CHANGES. SCHEDULED KEPPRA RECIEVED AND MADE AWARE W/NO NEW ORDERS RECIEVED. HE'S BEEN PLEASANT/COOPERATIVE W/CARE BUT WAS PREVIOUSLY REPORTED TO BE IRRITABLE AT TIMES. PT WAS INCONTINENT/CONTINENT W/URINAL ASSIST PROVIDED AND HAD LARGE BM VIA BED SPEARS THIS SHIFT. ATTENDS AND LINEN CHANGED PRN W/TURN SCHEDULE MAINTAINED. HE'S OFTEN FIGITY BUT CAN USE R.HAND TO EAT AND DRINK BY HIMSELF. NS INFUSES AT 100 ML/HR. MRI PLANNED FOR THIS AM W/PROBABLE NEED FOR SEDATION/VALIUM D/T INABILITY TO TOLERATE FLAT LYING BEFORE. NO ACUTE CHANGES, VSS/AFEBRILE. WCTM AND REPORT TO RN.
--- NOTE | 2022-12-13 17:30 | NUR ---
SHIFT SUMMARY: PATIENT A&OX4. CALM, PLEASANT AND COOPERATIVE c CARE TODAY. SLOW TO RESPOND BUT ANSWER TO ASSESSMENT QUESTIONS APPROPRIATELY. PATIENT HAS BEEN USING CALL LIGHT APPROPRIATELY AND ABLE TO MAKE NEEDS KNOWN T/O SHIFT. PATIENT WORK c PT MOBILITY AND TOLEARTED WELL. PT RECOMMENDED SNF. PATIENT HAD SHOWER AND LINEN CHANGED TODAY. MRI TO HEAD WAS DONE TODAY, AWAITING FOR RESULT. BS THIS SHIFT RANGES FROM 133-243. RECEIVED INSULIN COVERAGE PER EMAR SLIDING SCALE. PATIENT HAD THREE EPISODE OF JERKY MOVEMENTS MORE PRECISE TO LUE THAN THE RUE. PATIENT WAS CONSCIOUS WHEN THIS EVENT HAPPENED AND LAST ABOUT FEW 3-5 SECONDS EACH EPISODE. PATIENT DENIES N/V, PAIN AND SOB. DENIES CP/PRESSURE. PATIENT WAS ABLE TO TOLERATE SITTING UP IN THE CHAIR FOR ABOUT 3 HRS TODAY. VITAL SIGNS REVIEWED. IV TO L FOREARM INFUSING NS AT 100 MLS/HR. BED ALARM ON FOR SAFETY. CALL LIGHT IN REACH.
[2022-12-14 04:03] LABS: BASOPHILS ABSOLUTE AUTO 0.04 K/mm3 (0.00-0.23); BASOPHILS PERCENT AUTO 1 % (0-2); EOSINOPHILS ABSOLUTE AUTO 0.11 K/mm3 (0.00-0.68); EOSINOPHILS PERCENT AUTO 3 % (0-6); Hematocrit 30.5 % (37.0-53.0); Hemoglobin 10.3 g/dL (13.5-17.5); IMMATURE GRAN ABSOLUTE AUTO 0.01 K/mm3 (0.00-0.10); IMMATURE GRAN PERCENT AUTO 0 % (0-1); LYMPHOCYTES ABSOLUTE AUTO 0.85 K/mm3 (0.84-5.20); LYMPHOCYTES PERCENT AUTO 21 % (21-46); MONOCYTES ABSOLUTE AUTO 0.43 K/mm3 (0.16-1.47); MONOCYTES PERCENT AUTO 11 % (4-13); Mean Corpuscular HGB 25.8 pg (26.0-34.0); Mean Corpuscular HGB Conc 33.8 g/dL (31.5-36.5); Mean Corpuscular Volume 76 fL (80-100); Mean Platelet Volume 9.4 fL (9.1-12.4); NEUTROPHILS ABSOLUTE AUTO 2.55 K/mm3 (1.96-9.15); NEUTROPHILS PERCENT AUTO 64 % (41-73); Platelet Count 160 K/mm3 (150-400); RDW Coefficient Variation 14.9 % (11.7-14.2); RDW Standard Deviation 41.9 fL (35.1-46.3); White Blood Cell Count 3.99 K/mm3 (4.00-11.30)
[2022-12-14 04:18] LABS: Bun/Creatinine Ratio 15.3 (12.0-20.0); Creatinine, Blood 1.11 mg/dL (0.60-1.20); Potassium, Blood 3.4 mmol/L (3.5-5.5)
--- NOTE | 2022-12-14 05:22 | NUR ---
PATIENT ALERT AND ORIENTED, 2 PERSON ASSIST, ROOM AIR, NO TELE, 20 LFA W/ NS @ 125 ML/HR, ABDOMINIAL BRUSING, RED COCCYX, PT RECOMMENDS SNF, ONE EPISODE OF JERKING/SPASTICITY DURING SHIFT, ADA DIET, ACHS, MRI OF HEAD COMPLETED 12/13, K+ 3.4 THIS AM / 40 MEQ PO GIVEN TO PATIENT, NO EVENTS OVERNIGHT
--- NOTE | 2022-12-14 17:29 | NUR ---
DAYSHIFT SUMMARY Patient AOx3, calls appropriately. SBAx1 with FWW, for transfers. Patient very tremorous initially this morning with transfers. Patient worked with therpay, transfers more stable, but tremors still noted on left side, arms/legs. No signs of seizure acvtvity observed this shift. AM dose of Keppra 1,000mg administred. CBGs stable, SSI given with meals. Seizure precautions maintained. Therapy recommending SNF, care management sending off referrals. Will continue plan of care, awaiting placement.
[2022-12-15 08:18] LABS: Bun/Creatinine Ratio 15.4 (12.0-20.0); Calcium, Blood 9.1 mg/dL (8.5-10.1); Creatinine, Blood 1.17 mg/dL (0.60-1.20); Potassium, Blood 3.6 mmol/L (3.5-5.5)
--- NOTE | 2022-12-15 08:30 | NUR ---
JUSTEN WAS RATHER DIFFICULT TO WORK WITH INITIALLY. NOT WANTING TO PARTICIPATE IN A PHYSICAL ASSESSMENT. VERY ANGRY ABOUT THE "PREDICAMENT" HE WAS IN. PATIENT LATER ALLOWED ALL VS, AND EVEN ASKED FOR ASSISTANCE WITIH THE URINAL. LEFT ARM SEVERLY SHAKEY AND TREMULOUS, LAST NIGHT HE WAS UNABLE TO EVEN ASSIST WITH THE URINAL WHICH REALLY FRUSTRATED HIM FOR MOST OF THE NIGHT
--- NOTE | 2022-12-15 16:09 | NUR ---
SHIFT SUMMARY NO ACUTE CHANGES THIS SHIFT. PT AOX4 AND COOPERATIVE. HE HAS BEEN UP IN THE CHAIR MOST OF THE SHIFT. AN EEG WAS CONDUCTED TODAY, RESULTS PENDING. PT HAS HAD NO C/O N/V/CP/SOB/P THIS SHIFT. HE REMAINS ON SEIZURE PRECAUTIONS AND EXPERIENCING LEFT SIDED DEFICITS. WILL REPORT TO ONCOMING NURSE.
--- NOTE | 2022-12-16 04:51 | NUR ---
SHIFT SUMMARY PATIENT HAD NO ACUTE CHANGES. AXOX 4 AND ONE ASSIST W/FWW TO BR. NO SEIZURE ACTIVITY OBSERVED. PIV REMAINS INTACT. CBG 250. VSS/AFEBRILE. DENIES PAIN, SOB, AND N/V. LEFT ARM TREMORS. SEIZURE PRECAUTIONS. COOPERATIVE WITH CARE. CALL LIGHT IN REACH. BED IN LOWEST POSITION AND ALARM ACTIVATED. WILL CONTINUE TO MONITOR UNTIL DAY SHIFT NURSE ASSUMES CARE.
--- NOTE | 2022-12-16 15:25 | NUR ---
No acute changes to patient status, ready for discharge today. Therapy recommending homehealth. Care mangager discussed HH options with patient. Reviewed discharge education, Patient/ verbalized understanding. VSS. Patient left hospital at 1330.
== END 2022-12-16 13:19 | disposition home health service (06) | DRG 100 ==
LOC: ER 17:05 → MEDS 17:06
PROVIDERS: Emergency Medicine; Internal Medicine; ADMIT Student in an Organized Health Care Education/Training Program
PROC: 4A10X4Z Monitoring of Central Nervous Electrical Activity, External Approach (ICD-10-PCS; principal; 2022-12-15)
DX: G40.109 Localization-related (focal) (partial) symptomatic epilepsy and epileptic syndromes with simple partial seizures, not intractable, without status epilepticus (principal); G92.8 Other toxic encephalopathy; I69.354 Hemiplegia and hemiparesis following cerebral infarction affecting left non-dominant side; R82.81 Pyuria; E11.9 Type 2 diabetes mellitus without complications; I10 Essential (primary) hypertension; K22.70 Barrett's esophagus without dysplasia; F17.210 Nicotine dependence, cigarettes, uncomplicated; T42.4X5A Adverse effect of benzodiazepines, initial encounter; Z28.21 Immunization not carried out because of patient refusal; Z98.890 Other specified postprocedural states; Z79.02 Long term (current) use of antithrombotics/antiplatelets; Z79.82 Long term (current) use of aspirin; Z79.899 Other long term (current) drug therapy
CPT/HCPCS: 36415; 70450; 70496; 70498; 70551; 80048; 80053; 80177; 81001; 82947; 83735; 85025; 87077; 87086; 87186; 92610; 93005; 93010; 93308; 93321; 95819; 96361; 96372; 96374-59; 96375; 96375-59; 96376; 96376-59; 97110; 97112; 97116; 97162; 97166; 99285-25; A9270; G0378; J0696; J1650; J1953; J2060; J3360; J7030; J7799; Q9967